=== PATIENT | male | born 1995 | race Caucasian/White ===

== ENCOUNTER 2018-06-10 09:29 | Emergency (ER) | payer OTHER ==
[2018-06-10] MEDS ORDERED: Sodium Chloride 0.9% 1,000 ML IV ONE (09:31)
[2018-06-10] MEDS ORDERED: Ondansetron 4 MG/2 ML SDV IVPUSH ONE (09:31)
[2018-06-10] MEDS ORDERED: Ketorolac 30 MG/ML SDV IVPUSH ONE (09:31)
--- NOTE | 2018-06-10 09:32 | EDM.PDOC ---
ED HPI GENERAL MEDICAL PROBLEM - General Stated Complaint: ABD AND BACK PAIN Time Seen by Provider: 06/10/18 09:32 Source of Information: Reports: Patient - History of Present Illness INITIAL COMMENTS - FREE TEXT/NARRATIVE: HISTORY AND PHYSICAL: History of present illness: []Patient presents with dysuria and left flank pain 5 out of 10 nonradiating in the left flank around to his abdomen no fever chills sweats (This morning pain 0-1 out of 10 post treatment No fever nausea vomiting chills sweats Review of systems: As per history of present illness and below otherwise all systems reviewed and negative. Past medical history: As per history of present illness and as reviewed below otherwise noncontributory. Surgical history: As per history of present illness and as reviewed below otherwise noncontributory. Social history: No reported history of drug or alcohol abuse. Family history: As per history of present illness and as reviewed below otherwise noncontributory. Physical exam: HEENT: Atraumatic, normocephalic, pupils reactive, negative for conjunctival pallor or scleral icterus, mucous membranes moist, throat clear, neck supple, nontender, trachea midline. Lungs: Clear to auscultation, breath sounds equal bilaterally, chest nontender. Heart: S1S2, regular, negative for clicks, rubs, or JVD. Abdomen: Soft, nondistended, nontender. Negative for masses or hepatosplenomegaly. Negative for costovertebral tenderness. Pelvis: Stable nontender. Genitourinary: Deferred. Rectal: Deferred. Extremities: Atraumatic, negative for cords or calf pain. Neurovascular unremarkable. Neuro: Awake, alert, oriented. Cranial nerves II through XII unremarkable. Cerebellum unremarkable. Motor and sensory unremarkable throughout. Exam nonfocal. Diagnostics: [CBC CMP UA lipase ] abdomen pelvis CT no contrast Therapeutics: [One liter normal saline bolus Zofran 8 mg IV Toradol 30 mg IV Flomax Solu-Medrol [place] Flomax Zo filtering collection equipmentfran ] Impression: 5 mm left ureteral stone Abdominal pain Dysuria] Definitive disposition and diagnosis as appropriate pending reevaluation and review of above. Left Flank Pain Score (Numeric/FACES): 8 - Related Data Allergies Allergy/AdvReac Type Severity Reaction Status Date / Time No Known Allergies Allergy Verified 06/10/18 10:03 Home Meds: Home Meds . [No Known Home Meds] 06/10/18 [History] ED ROS GENERAL - Review of Systems Review Of Systems: See Below ED EXAM, GENERAL - Physical Exam Exam: See Below Course - Vital Signs Last Recorded V/S: Last Vital Signs Temp 98.1 F 06/10/18 09:51 Pulse 91 06/10/18 09:51 Resp 20 06/10/18 09:51 BP 146/102 H 06/10/18 09:51 Pulse Ox 100 06/10/18 09:51 - Orders/Labs/Meds Orders: Active Orders 24 hr Category Date Time Status Abdomen Pelvis wo Cont [CT] Stat Exams 06/10/18 10:08 Taken CULTURE URINE [RM] Stat Lab 06/10/18 10:15 Received Labs: Laboratory Tests 06/10/18 06/10/18 06/10/18 Range/Units 10:15 10:30 10:30 WBC 7.04 (4.0-11.0) K/uL RBC 5.63 (4.50-5.90) M/uL Hgb 16.1 (13.0-17.0) g/dL Hct 46.7 (38.0-50.0) % MCV 82.9 (80.0-98.0) fL MCH 28.6 (27.0-32.0) pg MCHC 34.5 (31.0-37.0) g/dL RDW Std Deviation 38.2 (28.0-62.0) fl RDW Coeff of [place] 13 (11.0-15.0) % Plt Count 255 (150-400) K/uL MPV 10.50 (7.40-12.00) fL Neut % (Auto) 79.7 (48.0-80.0) % Lymph % (Auto) 12.6 L (16.0-40.0) % [place] % (Auto) 6.8 (0.0-15.0) % Eos % (Auto) 0.3 (0.0-7.0) % Baso % (Auto) 0.6 (0.0-1.5) % Neut # (Auto) 5.6 (1.4-5.7) K/uL Lymph # (Auto) 0.9 (0.6-2.4) K/uL [place] # (Auto) 0.5 (0.0-0.8) K/uL Eos # (Auto) 0.0 (0.0-0.7) K/uL Baso # (Auto) 0.0 (0.0-0.1) K/uL Nucleated RBC % 0.0 /100WBC Nucleated RBCs # 0 K/uL Sodium 139 (136-148) mmol/L Potassium 3.6 (3.5-5.1) mmol/L Chloride 103 (98-107) mmol/L Carbon Dioxide 29.2 (21.0-32.0) mmol/L BUN 10 (7.0-18.0) mg/dL Creatinine 1.3 (0.8-1.3) mg/dL Est Cr Clr Drug Dosing 85.51 mL/min Estimated GFR (MDRD) > 60.0 ml/min Glucose 106 (74-106) mg/dL Calcium 9.5 (8.5-10.1) mg/dL Total Bilirubin 0.9 (0.2-1.0) mg/dL AST 23 (15-37) IU/L ALT 32 (14-63) IU/L Alkaline Phosphatase 62 (46-116) U/L Total Protein 7.7 (6.4-8.2) g/dL Albumin 4.5 (3.4-5.0) g/dL Globulin 3.2 (2.0-3.5) g/dL Albumin/Globulin Ratio 1.4 (1.3-2.8) Lipase 99 (73-393) U/L Urine Color DARK YELLOW Urine Appearance CLOUDY Urine pH 7.0 (5.0-8.0) Ur Specific [place] 1.020 (1.001-1.035) Urine Protein TRACE (NEGATIVE) mg/dL Urine Glucose (UA) NEGATIVE (NEGATIVE) mg/dL Urine Ketones NEGATIVE (NEGATIVE) mg/dL Urine Occult Blood LARGE H (NEGATIVE) Urine Nitrite NEGATIVE (NEGATIVE) Urine Bilirubin NEGATIVE (NEGATIVE) Urine Urobilinogen 1.0 (<2.0) EU/dL Ur Leukocyte Esterase NEGATIVE (NEGATIVE) Urine RBC 75-100 (0-2/HPF) Urine WBC 0-2 (0-5/HPF) Ur Epithelial Cells FEW (NONE-FEW) Amorphous Sediment MODERATE (NEGATIVE) Urine Bacteria 1+ H (NEGATIVE) Urine Mucus MODERATE (NONE-MOD) Meds: Medications Discontinued Medications Generic Name Dose Route Start Last Admin Trade Name Prabhakar PRN Reason Stop Dose Admin Sodium Chloride 1,000 mls @ 999 mls/hr 06/10/18 09:31 06/10/18 10:31 Normal Saline IV 06/10/18 10:31 999 mls/hr STAT ONE Administration Ketorolac Tromethamine 30 mg 06/10/18 09:31 06/10/18 10:30 Toradol IVPUSH 06/10/18 09:32 30 mg ONETIME ONE Administration Methylprednisolone Sodium Succinate 125 mg 06/10/18 11:17 Solu-Medrol IVPUSH 06/10/18 11:18 ONETIME ONE Ondansetron HCl 8 mg 06/10/18 09:31 06/10/18 10:30 Zofran IVPUSH 06/10/18 09:32 8 mg ONETIME ONE Administration Tamsulosin HCl 0.4 mg 06/10/18 11:17 Flomax PO 06/10/18 11:18 ONETIME ONE Departure - Departure Time of Disposition: 11:24 Disposition: Home, Self-Care 01 Condition: Good Clinical Impression: Ureteral stone - Discharge Information Referrals: PCP,None [Primary Care Provider] - Additional Instructions: Medication as prescribed Return if symptoms persist or worsen or if fever develops temperature over 100.4 , or if you have intractable pain or intractable vomiting Filter urine collection equipment return stone to primary care or urology [facility] - Primary Care [address] [place] [address] [facility] - Urology [address] [place] [address] The following information is given to patients seen in the emergency department who are being discharged to home. This information is to outline your options for follow-up care. We provide all patients seen in our emergency department with a follow-up referral. The need for follow-up, as well as the timing and circumstances, are variable depending upon the specifics of your emergency department visit. If you don't have a primary care physician on staff, we will provide you with a referral. We always advise you to contact your personal physician following an emergency department visit to inform them of the circumstance of the visit and for follow-up with them and/or the need for any referrals to a consulting specialist. The emergency department will also refer you to a specialist when appropriate. This referral assures that you have the opportunity for follow-up care with a specialist. All of these measure are taken in an effort to provide you with optimal care, which includes your follow-up. Under all circumstances we always encourage you to contact your private physician who remains a resource for coordinating your care. When calling for follow-up care, please make the office aware that this follow-up is from your recent emergency room visit. If for any reason you are refused follow-up, please contact the [facility] emergency department at and asked to speak to the emergency department charge nurse. - My Orders Last 24 Hours: My Active Orders 06/10/18 10:08 Abdomen Pelvis wo Cont [CT] Stat 06/10/18 10:15 CULTURE URINE [RM] Stat - Assessment/Plan Last 24 Hours: My Active Orders 06/10/18 10:08 Abdomen Pelvis wo Cont [CT] Stat 06/10/18 10:15 CULTURE URINE [RM] Stat
[2018-06-10 11:05] LABS: CHLORIDE,CL 103 mmol/L (98-107); SODIUM,NA 139 mmol/L (136-148)
[2018-06-10] MEDS ORDERED: Tamsulosin 0.4 MG Cap.ER PO ONE (11:17)
[2018-06-10] MEDS ORDERED: methylPREDNISolone Sodium Succinate 125 MG/2 ML SDV IVPUSH ONE (11:17)
--- NOTE | 2018-06-12 13:11 | CT ---
EXAM DATE: 06/10/18 PATIENT'S AGE: 23 Patient: ELENA FRANCO Facility: [place], [place] Site . Site : 1995 Study: CT Abdomen/Pelvis WO CONT [id number]/29/2018 10:56:06 AM Ordering Physician: Araceli Levy Final Report: INDICATION: Left-sided flank pain yesterday. TECHNIQUE: Noncontrast CT abdomen pelvis. COMPARISON: No comparison studies are available. FINDINGS: Heart size is normal. The lung bases are clear. The unenhanced liver spleen pancreas adrenal glands are unremarkable. Normal caliber abdomen aorta. Bilateral nonobstructing renal calculi. Urinary bladder is decompressed. Moderate hydronephrosis hydroureter with a 5 mm left proximal ureteral stone. Large amount stool. Osseous structures appear unremarkable. IMPRESSION: 1. 5 millimeter left proximal stone causing moderate hydronephrosis and hydroureter. Additional bilateral nonobstructing renal calculi. Please note that all CT scans at this facility use dose modulation, iterative reconstruction, and/or weight-based dosing when appropriate to reduce radiation dose to as low as reasonably achievable. Dictated by Luciana Glass MD @ Jun 10 2018 11:14AM (Electronic Signature) Report Signed by Proxy. GLENN
== END 2018-06-10 11:45 | disposition home or self-care (01) ==
LOC: MW.ED 09:29
DX: N13.2 Hydronephrosis with renal and ureteral calculous obstruction (principal)
CPT/HCPCS: 36415; 74176; 80053; 81001; 83690; 85025; 87086; 96361; 96374; 96375; 99284; A9270; J1885; J2405; J2930; J7040; 99283